=== PATIENT | male | born 1980 | race Two or more races ===

== ENCOUNTER 2025-05-11 21:09 | Inpatient (IN) ==
[2025-05-11 21:38] LABS: Basophils # (auto) 0.04 K/uL (0.00-0.20); Basophils % (auto) 0.7 %; Eosinophils # (auto) 0.02 K/uL (0.00-0.50); Eosinophils % (auto) 0.4 %; Hematocrit (blood only) 38.5 % (42.0-52.0); Hemoglobin 13.2 g/dl (14.0-18.0); Immature Granulocytes # (auto) 0.02 K/uL (0.01-0.20); Immature Granulocytes % (auto) 0.4 %; Lymphocytes # (auto) 1.08 K/uL (1.20-3.40); Lymphocytes % (auto) 19.2 %; Mean Corpuscular Hemoglobin 29.7 pg (25.0-34.0); Mean Corpuscular Hgb Conc 34.3 g/dL (32.0-36.0); Mean Corpuscular Volume 86.7 fL (80.0-100.0); Mean Platelet Volume 10.1 fL (9.4-12.4); Monocytes % (auto) 8.9 %; Neutrophils # (auto) 3.97 K/uL (1.40-6.50); Neutrophils % (auto) 70.4 %; Platelet Count 309 K/uL (130-400); RDW Coefficient of Variation 11.9 % (11.5-14.5); RDW Standard Deviation 37.7 fL (36.4-46.3); Red Blood Count 4.44 M/uL (4.70-6.10); White Blood Count 5.63 K/ul (4.8-10.8)
[2025-05-11 22:03] LABS: Prothrombin Time 10.8 Seconds (9.0-12.0)
[2025-05-11 22:07] LABS: Albumin Level 4.2 gm/dl (3.4-5.0); Bilirubin,Total 0.4 mg/dl (0.2-1.0); Calcium 9.2 mg/dl (8.6-10.3); Potassium 3.9 mmol/L (3.5-5.1)
[2025-05-11 22:13] LABS: Albumin Globulin Ratio 1.3 (0.9-2); BUN Creatinine Ratio 15.3 (10-20); Creatinine Clr Calc Pharmacy 131.4 ml/min; Globulin 3.3 gm/dl (2.5-4.0); Total Protein 7.5 gm/dl (6.0-8.3)
[2025-05-11 22:16] LABS: Acetaminophen 151 ug/ml (10-30); Salicylate < 3.0 mg/dl (3.0-30)
[2025-05-11 22:37] LABS: Amphetamines+Metham, Urine Neg (Neg); Barbiturates, Urine Neg (Neg); Benzodiazepine, Urine Neg (Neg); Cocaine, Urine Neg (Neg); Fentanyl, Urine Neg (Neg); MDMA (Ecstacy), Urine Neg (Neg); Marijuana, Urine Neg (Neg); Methadone, Urine Neg (Neg); Opiate, Urine Neg (Neg); Phencyclidine, Urine Neg (Neg)
--- NOTE | 2025-05-11 22:56 | History & Physical Report ---
Date of Service May 11, 2025 Assessment & Plan (1) Intentional overdose: Plan: Assessment and plan below following discussion of case with ED provider and reviewing patient history/pertinent normal/abnormal diagnostic test results. Intentional overdose Trileptal and Tylenol antisocial personality disorder hypertension, slightly elevated, patient not on maintenance medications hyperlipidemia, on statin Rx hx TIA as per patient account seizure disorder, stable on regimen New onset anemia, FOBT done at ER was negative Hyperglycemia rule out DM past tobacco abuse Admit to med/tele Hold Trileptal and Tylenol Continue Acetadote protocol for now for Tylenol toxicity, follow toxicology recommendations Suicide precautions Psych consult re: suicidality Monitor BP, initiate lisinopril if with persistent BP elevation. Anemia workup Check hemoglobin A1c DVT prophylaxis. SCDs Full code Text document was generated using [employer] voice recognition software. It may contain grammatical or spelling errors. Kindly contact undersigned for clarification of any documentation item in question. History of Present Illness Chief Complaint: Intentional overdose Primary Care Provider: CHANI Jacobs History obtained from patient and records. Medical history significant for hypertension, hyperlipidemia, TIA, seizure disorder, GERD, antisocial personality disorder, chronic pain, past tobacco abuse. Patient claims he took 30 pills of Trileptal around 10:30 in the morning fo llowed by 58 pills of Tylenol 500 mg around 8 PM. Admits that he had a breakdown today. Intentional drug overdose about 2 years ago as per patient. Denies chest pain, SOB. Patient refused charcoal administration at the [facility]. Achy right-sided abdominal pain at the ER. No overt bleeding as per patient account. IV Acetadote protocol initiated at the ER. Medical History as above Surgical History : None Family History : Heart disease, DM Personal/Social history : Past tobacco abuse, no EtOH intake, factory work prior to incarceration Allergies Allergy/AdvReac Type Severity Reaction Status Date / Time acetaminophen Allergy Unknown Unknown Unverified 05/11/25 21:36 NSAIDS (Non-Steroidal Allergy Unknown Unknown Unverified 05/11/25 21:36 Anti-Inflamma Home Medications Medication Instructions Recorded Confirmed Type aspirin 81 mg chewable tablet 81 mg PO DAILY 01/26/25 05/11/25 History atorvastatin 20 mg tablet 20 mg PO PM 01/26/25 05/11/25 History cholecalciferol (vitamin D3) 25 25 mcg PO DAILY 01/26/25 05/11/25 History mcg (1,000 unit) tablet (Vitamin D3) omeprazole 20 mg capsule,delayed 20 mg PO PM 01/26/25 05/11/25 History release acetaminophen 500 mg capsule 1,000 mg PO TID PRN Pain 05/11/25 05/11/25 History oxcarbazepine 300 mg tablet 900 mg PO BID 05/11/25 05/11/25 History Past Med/Surg History Problem List (Updated 05/12/25 @ 03:23 by Kingsley Loredo MD) Intentional overdose Intentional acetaminophen overdose (Acute) Suicide attempt by multiple drug overdose (Acute) Acetaminophen overdose (Acute) Seizure disorder (Acute) Social History Smoking Status: Former smoker Preferred Language: Faroese Feels Safe at Home: Yes Review of Systems Review of Systems: As per HPI, all other systems reviewed and negative Physical Exam Physical Exam: GENERAL: Slightly uncomfortable, no respiratory distress SKIN: Pallor, warm HEENT: Alopecia, pale palpebral conjunctivae, no ptosis, dry buccal mucosa NECK : Supple, no tenderness CHEST : CTA, no tenderness HEART : RRR, no obvious murmurs ABDOMEN: Some distention, right-sided abdominal tenderness RECTAL : Intact sphincter, brown stool (FOBT negative) EXTREMITIES : No LE swelling/tenderness, palpable pulses, no other conspicuous deformities noted NEUROLOGIC : Coherent, no facial asymmetry, no other gross focality Results & Data Results & Data Vital Signs (Past 12 Hours) Vital Signs Temp Pulse Resp BP Pulse Ox O2 Del Method 05/11/25 21:26 94 Room Air 05/11/25 21:18 Room Air 05/11/25 21:18 Room Air 05/11/25 21:18 36.8 C 85 20 149/106 H 97 Room Air 05/11/25 21:16 92 H Laboratory Results Laboratory Results WBC 5.63 K/ul (4.8-10.8) 05/11/25 21:20 RBC 4.44 M/uL (4.70-6.10) L 05/11/25 21:20 Hgb 13.2 g/dl (14.0-18.0) L 05/11/25 21:20 Hct 38.5 % (42.0-52.0) L 05/11/25 21:20 MCV 86.7 fL (80.0-100.0) 05/11/25 21:20 MCH 29.7 pg (25.0-34.0) 05/11/25 21: MCHC 34.3 g/dL (32.0-36.0) 05/11/25 21:20 RDW Std Deviation 37.7 fL (36.4-46.3) 05/11/25 21:20 RDW Coeff of Skinny 11.9 % (11.5-14.5) 05/11/25 21: Plt Count 309 K/uL (130-400) 05/11/25 21:20 MPV 10.1 fL (9.4-12.4) 05/11/25 21:20 Immature Gran % (Auto) 0.4 % 05/11/25 21: Neut % (Auto) 70.4 % 05/11/25 21:20 Lymph % (Auto) 19.2 % 05/11/25 21:20 [place] % (Auto) 8.9 % 05/11/25 21:20 Eos % (Auto) 0.4 % 05/11/25 21: Baso % (Auto) 0.7 % 05/11/25 21: Neut # (Auto) 3.97 K/uL (1.40-6.50) 05/11/25 21: Lymph # (Auto) 1.08 K/uL (1.20-3.40) L 05/11/25 21:20 [place] # (Auto) 0.50 K/uL (0.11-0.59) 05/11/25 21:20 Eos # (Auto) 0.02 K/uL (0.00-0.50) 05/11/25 21:20 Baso # (Auto) 0.04 K/uL (0.00-0.20) 05/11/25 21: Immature Gran # (Auto) 0.02 K/uL (0.01-0.20) 05/11/25: PT 10.8 Seconds (9.0-12.0) 05/11/25: INR 1.0 (0.9-1.1) 05/11/25: Sodium 136 mmol/L (136-145) 05/11/25 21: Potassium 3.9 mmol/L (3.5-5.1) 06/25/25 21:20 Chloride 102 mmol/L (98-107) 05/11/25 21:20 Carbon Dioxide 24 mmol/L (21-32) 05/11/25 21:20 Anion Gap 10 (3-11) 05/11/25 21:20 BUN 13 mg/dl (6-23) 05/11/25 21:20 Creatinine 0.85 mg/dl (0.6-1.4) 05/11/25 21:20 Est Cr Clr Drug Dosing 131.4 ml/min 05/11/25 21:20 eGFR 109.89 05/11/25 21:20 BUN/Creatinine Ratio 15.3 (10-20) 05/11/25 21:20 Glucose 115 mg/dl (70-99(Fasting)) H 05/11/25 21:20 Lactate 1.8 mmol/L (0.4-2.0) 05/11/25 21:45 Calcium 9.2 mg/dl (8.6-10.3) 05/11/25 21:20 Total Bilirubin 0.4 mg/dl (0.2-1.0) 05/11/25 21:20 AST 17 U/L (13-39) 05/11/25 21:20 ALT 15 U/L (7-52) 05/11/25 21:20 Alkaline Phosphatase 72 U/L (34-104) 05/11/25 21:20 Ammonia 28.0 umol/L (18-72) 05/11/25 21:45 Total Protein 7.5 gm/dl (6.0-8.3) 05/11/25 21:20 Albumin 4.2 gm/dl (3.4-5.0) 05/11/25 21:20 Globulin 3.3 gm/dl (2.5-4.0) 05/11/25 21:20 Albumin/Globulin Ratio 1.3 (0.9-2) 05/11/25 21:20 Salicylates < 3.0 mg/dl (3.0-30) L 05/11/25 21:20 Urine Opiates Screen Neg (Neg) 05/11/25 21:50 Ur Methadone, Qual Neg (Neg) 05/11/25 21:50 Urine Fentanyl Screen Neg (Neg) 05/11/25 21:50 Acetaminophen 151 ug/ml (10-30) H* 05/11/25 21:20 Urine Barbiturates Neg (Neg) 05/11/25 21:50 Ur Phencyclidine (PCP) Neg (Neg) 05/11/25 21:50 U Amphetamin/Meth Scrn Neg (Neg) 05/11/25 21:50 MDMA (Ecstasy) Screen Neg (Neg) 05/11/25 21:50 U Benzodiazepines Scrn Neg (Neg) 05/11/25 21:50 Ur Cocaine Metabolite Neg (Neg) 05/11/25 21:50 U Marijuana (THC) Screen Neg (Neg) 05/11/25 21:50 Ethyl Alcohol mg/dL < 10.0 mg/dl (<10.0) 05/11/25 21:20 CT abdomen pelvis: No significant abnormality detected No other new interval abnormality since prior study.
--- NOTE | 2025-05-11 23:54 | Emergency Department Note ---
Impression & Plan Acetaminophen overdose, Suicide attempt by multiple drug overdose, Intentional acetaminophen overdose ED Provider Note NAME: CYNTHIA [id number] TAMMIE AGE: 45 SEX: M : 1980 ARRIVES VIA: Ambulance INFORMANT: Patient, ED PROVIDER(S): Phyllis Marte MD CHIEF COMPLAINT: Overdose HPI: This is a 45-year-old male present for overdose. Patient states that at 10:30 AM he took 30 pills of Trileptal. He then took more pills at 8 PM today, about 1 hour ago. He took 58 pills of Tylenol 500 mg. He states his son attempted to kill himself. States he has "problems "right now. He notes some slight nausea and abdominal pain. He refused charcoal at the long-term. ROS: See above HPI for pertinent positives & negatives. A total of 10 systems reviewed and were otherwise negative. PAST MEDICAL HISTORY: See Below PAST SURGICAL HISTORY: See Below FAMILY HISTORY: See Below SOCIAL HISTORY: See Below HOME MEDICATIONS: See Below ALLERGIES: See Below VITALS: See Below PHYSICAL EXAMINATION: General: resting comfortably in no acute distress Head: Normocephalic and atraumatic Eyes: Normal inspection, extraocular muscles intact Ear, nose, throat: Normal external exam Neck: Normal range of motion Respiratory: speaking in full sentences, symmetric chest rise, no respiratory distress Cardiovascular: Regular rate/rhythm Extremities: moves all extremities Neuro: The patient awake and alert, appropriately conversive, symmetric faces, no focal deficits MEDICAL DECISION MAKING: This is a 45-year-old male presenting for overdose. Patient overall close clinically well but did have significant Tylenol ingestion. This appears to be about 29 g of Tylenol. Will give NAC at this time. Will get basic blood work, coingestions and a Trileptal level. Did discuss this with Poison Control Center. They recommend 4-hour Tylenol level, ammonia and coagulation. -ECG independently interpreted by me with normal sinus rhythm, rate of 93, normal axis, normal AL, normal QRS, normal QTc, no ST segment elevations consistent with STEMI criteria - Hemoglobin 13.2, no leukocytosis, electrolytes within normal limits. No creatinine elevation. Lactate 1.8. Negative slates and UDS. Positive acetaminophen level at 151. - Patient already ordered for NAC protocol. Differential diagnosis: Tylenol ingestion, antilithic ingestion, Independent History obtained from: [facility] [facility] Diagnostics interpreted by me: ECG: See above Cardiac Monitoring: An order was placed for continuous cardiac monitoring. The monitor shows a rate of 85 with sinus rhythm Critical Care Note: I have personally spent 34 minutes of critical care time in the direct management of this patient. This includes bedside care, interpretation of diagnostic studies, and testing, discussion with consultants, patient, and family members, and other required patient management activities. This 34 minutes is in excess of all separately billable procedures. Past Med/Surg History Problem List (Updated 05/12/25 @ 00:56 by Phyllis Marte MD) Intentional acetaminophen overdose (Acute) Suicide attempt by multiple drug overdose (Acute) Acetaminophen overdose (Acute) Seizure disorder (Acute) Social History Smoking Status: Former smoker Preferred Language: Chinese Feels Safe at Home: Yes Allergies Allergies Allergy/AdvReac Type Severity Reaction Status Date / Time acetaminophen Allergy Unknown Unknown Unverified 05/11/25 21:36 NSAIDS (Non-Steroidal Allergy Unknown Unknown Unverified 05/11/25 21:36 Anti-Inflamma Home Meds Home Medications Medication Instructions Recorded Confirmed aspirin 81 mg chewable tablet 81 mg PO DAILY 01/26/25 05/11/25 atorvastatin 20 mg tablet 20 mg PO PM 01/26/25 05/11/25 cholecalciferol (vitamin D3) 25 25 mcg PO DAILY 01/26/25 05/11/25 mcg (1,000 unit) tablet (Vitamin D3) omeprazole 20 mg capsule,delayed 20 mg PO PM 01/26/25 05/11/25 release acetaminophen 500 mg capsule 1,000 mg PO TID PRN Pain 05/11/25 05/11/25 oxcarbazepine 300 mg tablet 900 mg PO BID 05/11/25 05/11/25 Results & Data (ED) Vital Signs Vital Signs - 24 hr 05/11/25 21:16 05/11/25 21:18 05/11/25 21:18 Temperature 36.8 C Temperature Source Oral Pulse Rate 92 H 85 Pulse Rate from SpO2 Sensor Pulse Rhythm Regular Pulse Strength Normal Respiratory Rate 20 Respiratory Effort / Characteristics Non-Labored Spontaneous Respiratory Depth Normal Respiratory Pattern Regular Blood Pressure 149/106 H Blood Pressure Mean 120 Blood Pressure Position Lying Pulse Oximetry 97 Oxygen Delivery Method Room Air Room Air Sepsis Recent Fever Within 48 Hours No Sepsis New/Unexplained Change in Mental Status N/A Sepsis Action Taken by Nursing No Action Required 05/11/25 21:18 05/11/25 21:26 05/11/25 21:30 Temperature Temperature Source Pulse Rate 93 H Pulse Rate from SpO2 Sensor Pulse Rhythm Pulse Strength Respiratory Rate 21 Respiratory Effort / Characteristics Non-Labored Respiratory Depth Normal Respiratory Pattern Blood Pressure 137/100 Blood Pressure Mean 114 Blood Pressure Position Pulse Oximetry 94 96 Oxygen Delivery Method Room Air Room Air Sepsis Recent Fever Within 48 Hours Sepsis New/Unexplained Change in Mental Status Sepsis Action Taken by Nursing 05/11/25 22:00 05/11/25 22:30 Temperature Temperature Source Pulse Rate 88 83 Pulse Rate from SpO2 Sensor 89 Pulse Rhythm Pulse Strength Respiratory Rate 16 18 Respiratory Effort / Characteristics Respiratory Depth Respiratory Pattern Blood Pressure 139/101 H 131/101 H Blood Pressure Mean 113 117 Blood Pressure Position Pulse Oximetry 96 95 Oxygen Delivery Method Sepsis Recent Fever Within 48 Hours Sepsis New/Unexplained Change in Mental Status Sepsis Action Taken by Nursing Laboratory Data 05/12/25 00:26 05/11/25 21:20 Lab Results 05/11/25 05/11/25 05/11/25 Range/Units 21:20 21:26 21:45 WBC 5.63 (4.8-10.8) K/ul RBC 4.44 L (4.70-6.10) M/uL Hgb 13.2 L (14.0-18.0) g/dl Hct 38.5 L (42.0-52.0) % MCV 86.7 (80.0-100.0) fL MCH 29.7 (25.0-34.0) pg MCHC 34.3 (32.0-36.0) g/dL RDW Std Deviation 37.7 (36.4-46.3) fL RDW Coeff of Skinny 11.9 (11.5-14.5) % Plt Count 309 (130-400) K/uL MPV 10.1 (9.4-12.4) fL Immature Gran % (Auto) 0.4 % Neut % (Auto) 70.4 % Lymph % (Auto) 19.2 % [place] % (Auto) 8.9 % Eos % (Auto) 0.4 % Baso % (Auto) 0.7 % Neut # (Auto) 3.97 (1.40-6.50) K/uL Lymph # (Auto) 1.08 L (1.20-3.40) K/uL [place] # (Auto) 0.50 (0.11-0.59) K/uL Eos # (Auto) 0.02 (0.00-0.50) K/uL Baso # (Auto) 0.04 (0.00-0.20) K/uL Immature Gran # (Auto) 0.02 (0.01-0.20) K/uL PT 10.8 (9.0-12.0) Seconds INR 1.0 (0.9-1.1) Sodium 136 (136-145) mmol/L Potassium 3.9 (3.5-5.1) mmol/L Chloride 102 (98-107) mmol/L Carbon Dioxide 24 (21-32) mmol/L Anion Gap 10 (3-11) BUN 13 (6-23) mg/dl Creatinine 0.85 (0.6-1.4) mg/dl Est Cr Clr Drug Dosing 131.4 ml/min eGFR 109.89 BUN/Creatinine Ratio 15.3 (10-20) Glucose 115 H (70-99(Fasting)) mg/dl Lactate 1.8 (0.4-2.0) mmol/L Calcium 9.2 (8.6-10.3) mg/dl Total Bilirubin 0.4 (0.2-1.0) mg/dl AST 17 (13-39) U/L ALT 15 (7-52) U/L Alkaline Phosphatase 72 (34-104) U/L Ammonia 28.0 (18-72) umol/L Total Protein 7.5 (6.0-8.3) gm/dl Albumin 4.2 (3.4-5.0) gm/dl Globulin 3.3 (2.5-4.0) gm/dl Albumin/Globulin Ratio 1.3 (0.9-2) Salicylates < 3.0 L (3.0-30) mg/dl Urine Opiates Screen (Neg) Ur Methadone, Qual (Neg) Urine Fentanyl Screen (Neg) Acetaminophen 151 H* (10-30) ug/ml Urine Barbiturates (Neg) Ur Phencyclidine (PCP) (Neg) U Amphetamin/Meth Scrn (Neg) MDMA (Ecstasy) Screen (Neg) U Benzodiazepines Scrn (Neg) Ur Cocaine Metabolite (Neg) U Marijuana (THC) Screen (Neg) Ethyl Alcohol mg/dL < 10.0 (<10.0) mg/dl 05/11/25 Range/Units 21:50 WBC (4.8-10.8) K/ul RBC (4.70-6.10) M/uL Hgb (14.0-18.0) g/dl Hct (42.0-52.0) % MCV (80.0-100.0) fL MCH (25.0-34.0) pg MCHC (32.0-36.0) g/dL RDW Std Deviation (36.4-46.3) fL RDW Coeff of Skinny (11.5-14.5) % Plt Count (130-400) K/uL MPV (9.4-12.4) fL Immature Gran % (Auto) % Neut % (Auto) % Lymph % (Auto) % [place] % (Auto) % Eos % (Auto) % Baso % (Auto) % Neut # (Auto) (1.40-6.50) K/uL Lymph # (Auto) (1.20-3.40) K/uL [place] # (Auto) (0.11-0.59) K/uL Eos # (Auto) (0.00-0.50) K/uL Baso # (Auto) (0.00-0.20) K/uL Immature Gran # (Auto) (0.01-0.20) K/uL PT (9.0-12.0) Seconds INR (0.9-1.1) Sodium (136-145) mmol/L Potassium (3.5-5.1) mmol/L Chloride (98-107) mmol/L Carbon Dioxide (21-32) mmol/L Anion Gap (3-11) BUN (6-23) mg/dl Creatinine (0.6-1.4) mg/dl Est Cr Clr Drug Dosing ml/min eGFR BUN/Creatinine Ratio (10-20) Glucose (70-99(Fasting)) mg/dl Lactate (0.4-2.0) mmol/L Calcium (8.6-10.3) mg/dl Total Bilirubin (0.2-1.0) mg/dl AST (13-39) U/L ALT (7-52) U/L Alkaline Phosphatase (34-104) U/L Ammonia (18-72) umol/L Total Protein (6.0-8.3) gm/dl Albumin (3.4-5.0) gm/dl Globulin (2.5-4.0) gm/dl Albumin/Globulin Ratio (0.9-2) Salicylates (3.0-30) mg/dl Urine Opiates Screen Neg (Neg) Ur Methadone, Qual Neg (Neg) Urine Fentanyl Screen Neg (Neg) Acetaminophen (10-30) ug/ml Urine Barbiturates Neg (Neg) Ur Phencyclidine (PCP) Neg (Neg) U Amphetamin/Meth Scrn Neg (Neg) MDMA (Ecstasy) Screen Neg (Neg) U Benzodiazepines Scrn Neg (Neg) Ur Cocaine Metabolite Neg (Neg) U Marijuana (THC) Screen Neg (Neg) Ethyl Alcohol mg/dL (<10.0) mg/dl Administered Medications Acetylcysteine 5,000 mg/ (Dextrose) 525 mls @ 125 mls/hr IV ONCE ONE; Protocol Stop: 05/12/25 03:01 Last Admin: 05/12/25 00:11 Dose: 125 mls/hr Documented By: YENY Sodium Chloride (Nss) 1,000 mls @ 75 mls/hr IV .[id number] STA Stop: 05/12/25 12:17 Last Admin: 05/12/25 00:15 Dose: 75 mls/hr Documented By: YENY Discontinued Medications Acetylcysteine (Acetylcysteine Iv 21 Hr Regimen (>40kg)) 1 each IV NOW STA; Protocol Stop: 05/11/25 21:50 Last Admin: 05/11/25 22:36 Dose: Not Given Documented By: YENY Acetylcysteine 15,000 mg/ (Dextrose) 275 mls @ 200 mls/hr IV ONCE ONE; Protocol Stop: 05/11/25 23:12 Last Infusion: 05/12/25 00:14 Dose: Infused Documented By: Admin: 05/11/25 22:29 Dose: 200 mls/hr Documented By: YENY Ioversol (Optiray 320 100ml) 93 ml IV ONCE ONE Stop: 05/12/25 00:02 Last Admin: 05/12/25 00:01 Dose: 93 ml Documented By: MATT Miscellaneous (Stat Iv/Im) 1 each N/A NOW STA Stop: 05/11/25 21:50 Last Admin: 05/11/25 23:13 Dose: Not Given Documented By: YENY Oxycodone HCl (Oxycodone Hcl Ir 5 Mg Tab (Immediate Release)) 5 mg PO NOW STA Stop: 05/11/25 23:34 Last Admin: 05/12/25 00:11 Dose: 5 mg Documented By: YENY Discharge Plan Visit Data Chief Complaint: Overdose (Intentional) Stated Complaint: OVERDOSE, TOOK 58 TYLENOL (WITNESSED) ED Provider: Phyllis Marte Discharge Problem: Acetaminophen overdose, Suicide attempt by multiple drug overdose, Intentional acetaminophen overdose Patient Disposition: Admitted As Inpatient Condition: Fair Discharge Instructions Interventions: ED Discharge Assessment Last Done: 05/11/25 23:25 Discharge Problem: Acetaminophen overdose Qualifiers: Encounter type: initial encounter Injury intent: intentional self-harm Q ualified Code(s): T39.1X2A - Poisoning by 4-Aminophenol derivatives, intentional self-harm, initial encounter Suicide attempt by multiple drug overdose Qualifiers: Encounter type: initial encounter Qualified Code(s): T50.912A - Poisoning by multiple unspecified drugs, medicaments and biological substances, intentional self-harm, initial encounter Intentional acetaminophen overdose Qualifiers: Encounter type: initial encounter Qualified Code(s): T39.1X2A - Poisoning by 4- Aminophenol derivatives, intentional self-harm, initial encounter
[2025-05-12 00:43] LABS: Hematocrit (blood only) 38.1 % (42.0-52.0); Hemoglobin 12.9 g/dl (14.0-18.0); Reticulocyte % 1.21 % (0.50-2.00)
[2025-05-12 01:13] LABS: Acetaminophen 75 ug/ml (10-30); Valproic Acid < 10 mcg/ml (50-100)
[2025-05-12 01:17] LABS: Appearance Urine Clear (Clear); Bilirubin Urine Negative (Negative); Blood Urine Negative (Negative); Color Urine Yellow; Glucose Urine UA Negative (Negative); Ketones Urine Negative (Negative); Leukocyte Esterase Urine Negative (Negative); Nitrite Urine Negative (Negative); Protein Urine Negative (Negative); Specific Gravity Urine 1.021 (1.000-1.030); Urobilinogen Urine Negative (Negative); pH Urine 6.5 (4.5-7.5)
[2025-05-12 01:18] LABS: Ferritin 46.9 ng/ml (8-388)
[2025-05-12 01:23] LABS: Folate (Folic Acid),Ser orPlas 18.28 ng/ml (>5.38)
--- NOTE | 2025-05-12 01:25 | CT Scan Report ---
EXAM: CT abd pelvis IV con only CLINICAL HISTORY: r abd pain TECHNIQUE: Contiguous axial images were obtained from the level of the diaphragm to the pubic symphysis with intravenous contrast. Coronal and sagittal reconstructions were likewise performed and indicated to increase the sensitivity for detecting clinically relevant pathology. If IV contrast material had not been administered, the likelihood of detecting abnormalities relevant to the patient's condition would have been substantially decreased. CT scan was performed according to ALARA (as low as reasonable achievable). COMPARISON: 01/26/2025 07:34:35 DIETARY SERVICES MANAGER FINDINGS: The visualized lung bases are clear. The liver is normal in size and attenuation. Tiny hypodense focus is noted in segment V of liver - appears simple cyst.-stable. There is no intra or extrahepatic biliary ductal dilatation. Hepatic vasculature is patent. The gallbladder is present. The spleen, pancreas, and adrenal glands are unremarkable. The kidneys are normal in size and attenuation. There is no hydronephrosis or perinephric fat stranding. No renal calculi or renal masses are identified. The ureters are normal in caliber and no ureteral calculi are seen. The bladder is normal in contour. Pelvic viscera are unremarkable. No focal or diffuse bowel wall thickening or evidence of bowel obstruction is identified. The appendix is visualized in the right lower quadrant and appears within normal limits. Abdominal and pelvic vasculature is patent. No adenopathy or fluid collections are seen. No aggressive appearing osseous lesions are identified. IMPRESSION: No significant abnormality detected No other new interval abnormality since prior study. Electronically signed by Hakeem Mercado 05-12-2025 01:24 AM
--- NOTE | 2025-05-12 03:26 | Communication Note ---
Date of Service: May 12, 2025 Tylenol level noted to be decreasing. Poison control recommended stopping Acetadote protocol.
[2025-05-12 05:16] LABS: Basophils # (auto) 0.05 K/uL (0.00-0.20); Basophils % (auto) 0.6 %; Eosinophils # (auto) 0.01 K/uL (0.00-0.50); Eosinophils % (auto) 0.1 %; Hematocrit (blood only) 38.5 % (42.0-52.0); Immature Granulocytes # (auto) 0.02 K/uL (0.01-0.20); Immature Granulocytes % (auto) 0.2 %; Lymphocytes # (auto) 2.09 K/uL (1.20-3.40); Lymphocytes % (auto) 24.6 %; Mean Corpuscular Hemoglobin 29.5 pg (25.0-34.0); Mean Corpuscular Hgb Conc 33.8 g/dL (32.0-36.0); Mean Corpuscular Volume 87.3 fL (80.0-100.0); Mean Platelet Volume 9.8 fL (9.4-12.4); Monocytes % (auto) 9.4 %; Neutrophils # (auto) 5.51 K/uL (1.40-6.50); Neutrophils % (auto) 65.1 %; Platelet Count 310 K/uL (130-400); RDW Coefficient of Variation 11.9 % (11.5-14.5); RDW Standard Deviation 38.2 fL (36.4-46.3); Red Blood Count 4.41 M/uL (4.70-6.10); White Blood Count 8.48 K/ul (4.8-10.8)
[2025-05-12 05:32] LABS: Albumin Globulin Ratio 1.3 (0.9-2); Albumin Level 3.9 gm/dl (3.4-5.0); Bilirubin,Total 0.5 mg/dl (0.2-1.0); Calcium 8.9 mg/dl (8.6-10.3); Creatinine Clr Calc Pharmacy 134.5 ml/min; Globulin 2.9 gm/dl (2.5-4.0); Potassium 3.8 mmol/L (3.5-5.1); Total Protein 6.8 gm/dl (6.0-8.3)
[2025-05-12 07:19] LABS: Estimated Average Glucose 137 mg/dl; Hemoglobin A1C 6.4 % (4.5-5.6)
--- NOTE | 2025-05-12 12:17 | Psychiatric Consultation ---
Date of Consultation May 12, 2025 Impression / Recommendations Impression Diagnostically consistent with generalized anxiety disorder with panic attacks and history of antisocial personality disorder with adjustment disorder with mixed disturbance of emotions and conduct in the context of frustration/stress with his restrictive housing at [facility] and possible secondary gain component of the attempt in hoping this would further his request to move long-term facilities or create some movement with his current circumstances which he feels stuck in. No evidence for major depressive episode on interview nor mental status exam. Acute risk of self-harm is moderate given suicide attempt and ongoing ambivalence about being alive. He is not interested in starting any psychiatric medication at this time. He should remain on suicide precautions with guards present pending return to the long-term on suicide watch/long-term safety protocols until evaluated by their treating clinicians there. There are not a candidate for inpatient psychiatric care as they are an inmate and any forensic referrals would be at the discretion of the long-term. Overall, I spent a total of 60 minutes with this case including review of chart records, review of labwork, review of EKG QTc, direct evaluation of the patient at bedside, counseling the patient, discussion of the patient with the hospitalist provider, discussion with the psychiatric liason during clinical rounds and documentation in the electronic health record. (1) Intentional overdose: (2) Suicide attempt by multiple drug overdose: Encounter type: initial encounter Qualified Code(s): T50.912A - Poisoning by multiple unspecified drugs, medicaments and biological substances, intentional self-harm, initial encounter (3) Antisocial personality disorder: (4) Adjustment disorder with mixed disturbance of emotions and conduct: (5) Generalized anxiety disorder with panic attacks: Plan -Recommend 1-on-1 with suicide precautions -guards are also to be present at bedside -should return to [facility] on suicide precautions pending further evaluation there. -If he becomes interested in medication consider use of: abilify 5mg daily for off-label use for anxiety with panic attacks given multiple failed trials of SSRI/SNRI per his report Psych History Identifying Data Jigar Ceballos is a 45 yo man and inmate at [facility] with a history of hypertension, hyperlipidemia, TIA, seizure disorder, GERD, antisocial personality disorder, chronic pain admitted medically following suicide attempt via overdose of acetaminophen and Trileptal. Psychiatry consulted for recommendations. Chief Complaint "I'll probably be back here again in a few days". History of Present Illness Tano was seen at bedside with guards from his correctional facility. He reports stockpiling Trileptal, which he gets for seizures, over recent months for unclear reasons stating he was "hoarding them" and then had tylenol availa ble in blister packs due to history of pain. States his attempt was very impulsive and that he thought of suicide and abruptly took a bunch of medications. He suspects poor sleep in days prior to attempt and stressors contributed. He wasn't sure what he wanted to happen or what would happen with taking the medications. Did suspect that it would be better for a lot of other people "if I had a painful " references individuals who as part of his current incarceration charges and family. Ambivalent about being alive as he notes that [facility] to [facility] he'll have suicide restrictions such as safety smock and changes in where he is housed and that will probably lead to him attempting suicide again. Cites stressors of "court stuff, restrictive housing, family stuff". Endorses chronic anxiety with panic attacks with sense of doom and cause him to be paranoid that others are talking about him. Cites long history of psych med trials. Diagnosis of anxiety and depression. No history of austin nor psychosis. Hasn't ever found SSRIs or SNRIs to be beneficial. Didn't like mirtazapine. Liked olanzapine but caused foot swelling and weight gain. States long-term won't put him on Seroquel (it can be frequently misused in [facility] settings). He's not interested in starting any medication as he thinks the long-term won't continue it there. He denies any substance use. Allergies Allergy/AdvReac Type Severity Reaction Status Date / Time acetaminophen Allergy Unknown Unknown Unverified 05/11/25 21:36 NSAIDS (Non-Steroidal Allergy Unknown Unknown Unverified 05/11/25 21:36 Anti-Inflamma Home Medications Medication Instructions Recorded Confirmed Type aspirin 81 mg chewable tablet 81 mg PO DAILY 01/26/25 05/11/25 History atorvastatin 20 mg tablet 20 mg PO PM 01/26/25 05/11/25 History cholecalciferol (vitamin D3) 25 25 mcg PO DAILY 01/26/25 05/11/25 History mcg (1,000 unit) tablet (Vitamin D3) omeprazole 20 mg capsule,delayed 20 mg PO PM 01/26/25 05/11/25 History release acetaminophen 500 mg capsule 1,000 mg PO TID PRN Pain 05/11/25 05/11/25 History oxcarbazepine 300 mg tablet 900 mg PO BID 05/11/25 05/11/25 History Patient History Social History Smoking Status: Former smoker Hx Alcohol Use: No Hx Substance Use: No Preferred Language: Divehi Communication Ability: Effective Timber Girdler Required: No Beliefs That Will Affect Care: None Current Living Situation: Other Current Living Situation Comment: [facility] Feels Safe at Home: Yes Safety Concerns: Feels Safe At This Time Physical Exam Psychiatric: Orientation: alert and oriented x 3 Apperance: appropriately dressed and appropriately groomed Eye Contact: good eye contact Motor Behavior: no abnormal motor movements Speech: normal rate/rhythm/volume of speech Affect: + constricted affect Mood: + anxious mood; no depressed mood Thought Process: linear/logical thought process Thought Content: reality based without delusions Suicidal Thoughts: denies suicidal thoughts (but ambivalent about being alive) Homicidal Thoughts: denies homicidal thoughts Hallucinations: no auditory hallucinations and no visual hallucinations Cognition: recent memory grossly intact, remote memory grossly intact, attention grossly intact and language grossly intact Estimated Intelligence: consistent with education level Insight: + fair insight Judgment: + poor judgement Vital Signs (Past 24 Hours): Last Vital Signs Temp 36.8 C 05/11/25 21:18 Pulse 85 05/12/25 12:00 Resp 21 05/12/25 12:00 BP 138/93 05/12/25 12:00 Pulse Ox 95 05/12/25 07:30 O2 Del Method Room Air 05/12/25 12:00 Results & Data (PSY) Medications Administered Aspirin (Aspirin 81 Mg Ectab) 81 mg PO DAILY MIKEL Stop: 06/11/25 08:59 Last Admin: 05/12/25 07:25 Dose: 81 mg Documented By: ELE Sodium Chloride (Nss) 1,000 mls @ 60 mls/hr IV .[id number] STA Stop: 05/12/25 15:37 Last Admin: 05/12/25 00:15 Dose: 75 mls/hr Documented By: YENY Lisinopril (Lisinopril 2.5 Mg Tab) 2.5 mg PO QAM MIKEL Stop: 06/11/25 04:49 Last Admin: 05/12/25 07:25 Dose: 2.5 mg Documented By: ELE Oxycodone HCl (Oxycodone Hcl Ir 5 Mg Tab (Immediate Release)) 5 mg PO Q4H PRN PRN Reason: Pain Stop: 05/25/25 23:40 Last Admin: 05/12/25 11:18 Dose: 5 mg Documented By: ELE Coding Level of Care Code 50038 IN/OBS CONSULT LVL 4,60M Diagnoses Intentional overdose T50.902A Suicide attempt by multiple drug overdose T50.912A Encounter type: initial encounter Antisocial personality disorder F60.2 Adjustment disorder with mixed disturbance of emotions and conduct F43.25 Generalized anxiety disorder with panic attacks F41.1; F41.0
--- NOTE | 2025-05-12 13:45 | Hospitalist Progress Note ---
Date of Service May 12, 2025 Assessment & Plan (1) Antisocial personality disorder: (2) Intentional overdose: Plan Pt is a 45yoM with PMHx significant for hypertension, hyperlipidemia, TIA, seizure disorder, GERD, antisocial personality disorder, chronic pain, past tobacco abuse who presents from the group home with a suicide attempt by overdosing on 30 pills of Trileptal around 10:30 in the morning followed by 58 pills of Tylenol 500 mg around 8 PM. Intentional overdose antisocial personality disorder 30 pills of Trileptal around 10:30 in the morning followed by 58 pills of Tylenol 500 mg around 8 PM Hold Trileptal and Tylenol Continue Acetadote protocol for now for Tylenol toxicity, follow toxicology recommendations-- currently on hold Suicide precautions Psych consult re: suicidality suicide precautions one to one prn pain meds hypertension slightly elevated, patient not on maintenance medications Monitor BP, initiate lisinopril if with persistent BP elevation. Anemia FOBT negative Anemia panel pending Prediabetes Hgb a1c of 6.4 PCP followup Chronic Medical Problems: hyperlipidemia, on statin Rx hx TIA as per patient account seizure disorder, stable on regimen New onset anemia, FOBT done at ER was negative Hyperglycemia rule out DM past tobacco abuse DVT prophylaxis. SCDs Full code Admission and Anticipated Discharge Date Admission Date: May 11, 2025 Subjective Pt was seen while still down in the ED three guards at bedside Noting abd pain at that time Denied N/V, headache, changes to vision Notes lots of stressors Review of Systems Review of Systems: All systems reviewed & are unremarkable except as noted in Subjective Physical Exam Physical Exam: General: Alert, oriented. No acute distress Psych: Appropriate mood and affect Neuro: No gross deficits HEENT: NC/AT CV: RRR Resp: Breath sounds clear bilaterally, no increased effort of breathing Abdomen: Soft, tender in RUQ Extremities: No edema in lower extremities bilaterally. Results & Data Results & Data Vital Signs (Past 12 Hours) Vital Signs Pulse Pulse Resp BP Pulse Ox Pulse Ox O2 Del Method 05/12/25 12:00 138/93 05/12/25 12:00 85 21 Room Air 05/12/25 11:33 78 18 05/12/25 11:00 82 23 05/12/25 10:33 84 20 05/12/25 10:00 75 22 Room Air 05/12/25 10:00 150/100 H 05/12/25 09:30 66 13 05/12/25 08:00 72 14 146/103 H Room Air 05/12/25 07:30 79 19 95 Room Air 05/12/25 07:06 83 19 98 Room Air 05/12/25 07:01 148/111 H 05/12/25 06:50 74 05/12/25 06:30 71 21 143/96 H 95 05/12/25 06:00 67 15 160/100 H 95 05/12/25 05:43 96 05/12/25 05:30 77 18 158/93 H 95 05/12/25 05:00 78 22 159/112 H 95 05/12/25 04:00 82 15 168/109 H 05/12/25 03:00 85 16 153/111 H 95 05/12/25 02:30 77 19 157/110 H O2 Del Method 05/12/25 12:00 05/12/25 12:00 05/12/25 11:33 05/12/25 11:00 05/12/25 10:33 05/12/25 10:00 05/12/25 10:00 05/12/25 09:30 05/12/25 08:00 05/12/25 07:30 05/12/25 07:06 05/12/25 07:01 05/12/25 06:50 05/12/25 06:30 05/12/25 06:00 05/12/25 05:43 Room Air 05/12/25 05:30 05/12/25 05:00 05/12/25 04:00 05/12/25 03:00 05/12/25 02:30 Diagnostic Findings Abdomen/Pelvis CT 05/11/25 23:38 EXAM: CT abd pelvis IV con only CLINICAL HISTORY: r abd pain TECHNIQUE: Contiguous axial images were obtained from the level of the diaphragm to the pubic symphysis with intravenous contrast. Coronal and sagittal reconstructions were likewise performed and indicated to increase the sensitivity for detecting clinically relevant pathology. If IV contrast material had not been administered, the likelihood of detecting abnormalities relevant to the patient's condition would have been substantially decreased. CT scan was performed according to ALARA (as low as reasonable achievable). COMPARISON: 01/26/2025 07:34:35 PRODUCT DEVELOPMENT ASSISTANT FINDINGS: The visualized lung bases are clear. The liver is normal in size and attenuation. Tiny hypodense focus is noted in segment V of liver - appears simple cyst.-stable. There is no intra or extrahepatic biliary ductal dilatation. Hepatic vasculature is patent. The gallbladder is present. The spleen, pancreas, and adrenal glands are unremarkable. The kidneys are normal in size and attenuation. There is no hydronephrosis or perinephric fat stranding. No renal calculi or renal masses are identified. The ureters are normal in caliber and no ureteral calculi are seen. The bladder is normal in contour. Pelvic viscera are unremarkable. No focal or diffuse bowel wall thickening or evidence of bowel obstruction is identified. The appendix is visualized in the right lower quadrant and appears within normal limits. Abdominal and pelvic vasculature is patent. No adenopathy or fluid collections are seen. No aggressive appearing osseous lesions are identified. IMPRESSION: No significant abnormality detected No other new interval abnormality since prior study. Electronically signed by Hakeem Mercado 05-12-2025 01:24 AM
--- NOTE | 2025-05-12 15:42 | Electrocardiogram Report ---
Test Reason : Blood Pressure : */* mmHG Vent. Rate : 93 BPM Atrial Rate : 93 BPM P-R Int : 150 ms QRS Dur : 86 ms QT Int : 352 ms P-R-T Axes : 46 45 61 degrees QTcB Int : 437 ms Normal sinus rhythm Normal ECG When compared with ECG of 26-Jan-2025 08:01, No significant change was found Confirmed by Wojciech Cuello ([id number]) on 05/12/2025 3:42:48 PM Referred By: Reynaldo [facility] Confirmed By: Wojciech Cuello
[2025-05-12 23:31] VITALS: RESP 18
--- NOTE | 2025-05-13 01:22 | Communication Note ---
Date of Service: May 13, 2025 Patient inquiring regarding resumption of Trileptal Rx for seizure disorder as per RN. Last intake was yesterday morning. Okay to restart Trileptal as per conversation with poison control.
[2025-05-13 07:15] VITALS: BP 135/95; TEMP 97.9; O2SAT 96
[2025-05-13 09:12] LABS: Basophils # (auto) 0.07 K/uL (0.00-0.20); Basophils % (auto) 0.9 %; Eosinophils # (auto) 0.24 K/uL (0.00-0.50); Hematocrit (blood only) 41.4 % (42.0-52.0); Hemoglobin 13.5 g/dl (14.0-18.0); Immature Granulocytes # (auto) 0.01 K/uL (0.01-0.20); Immature Granulocytes % (auto) 0.1 %; Lymphocytes # (auto) 3.22 K/uL (1.20-3.40); Lymphocytes % (auto) 39.7 %; Mean Corpuscular Hemoglobin 29.2 pg (25.0-34.0); Mean Corpuscular Hgb Conc 32.6 g/dL (32.0-36.0); Mean Corpuscular Volume 89.6 fL (80.0-100.0); Mean Platelet Volume 9.8 fL (9.4-12.4); Monocytes # (auto) 0.68 K/uL (0.11-0.59); Monocytes % (auto) 8.4 %; Neutrophils # (auto) 3.89 K/uL (1.40-6.50); Neutrophils % (auto) 47.9 %; Platelet Count 291 K/uL (130-400); RDW Coefficient of Variation 12.3 % (11.5-14.5); Red Blood Count 4.62 M/uL (4.70-6.10); White Blood Count 8.11 K/ul (4.8-10.8)
[2025-05-13 09:29] LABS: Albumin Globulin Ratio 1.5 (0.9-2); Albumin Level 4.1 gm/dl (3.4-5.0); BUN Creatinine Ratio 14.4 (10-20); Bilirubin,Total 0.5 mg/dl (0.2-1.0); Calcium 9.1 mg/dl (8.6-10.3); Creatinine Clr Calc Pharmacy 115.1 ml/min; Globulin 2.7 gm/dl (2.5-4.0); Magnesium 1.8 mg/dl (1.7-2.4); Phosphorus 3.3 mg/dl (2.5-4.9); Potassium 3.8 mmol/L (3.5-5.1); Total Protein 6.8 gm/dl (6.0-8.3)
--- NOTE | 2025-05-13 09:40 | Discharge Summary ---
Discharge Summary Date of Service May 13, 2025 Principal Dx & Hospital Course #1 = Principal Diagnosis (1) Antisocial personality disorder: (2) Intentional overdose: Plan Pt is a 45yoM with PMHx significant for hypertension, hyperlipidemia, TIA, seizure disorder, GERD, antisocial personality disorder, chronic pain, past tobacco abuse who presents from the shelter with a suicide attempt by overdosing on 30 pills of Trileptal around 10:30 in the morning followed by 58 pills of Tylenol 500 mg around 8 PM. Intentional overdose antisocial personality disorder Seizure disorder 30 pills of Trileptal around 10:30 in the morning followed by 58 pills of Tylenol 500 mg around 8 PM Held Trileptal and Tylenol Acetadote protocol for Tylenol toxicity, follow Poison Control/toxicology recommendations, tylenol level 151 on arrival, down to 75 on recheck, Poison control recommended stopping the protocol. Apron Cleaner discussed with Poison Control overnight on 05/12- advised pt can resume home trileptal. Resumed before discharge. Suicide precautions Psych consult re: suicidality one to one prn pain meds Per Psychiatry recommendations: "...Diagnostically consistent with generalized anxiety disorder with panic attacks and history of antisocial personality disorder with adjustment disorder with mixed disturbance of emotions and conduct in the context of frustration/stress with his restrictive housing at [facility] and possible secondary gain component of the attempt in hoping this would further his request to move shelter facilities or create some movement with his current circumstances which abilio issa feels stuck in. No evidence for major depressive episode on interview nor mental status exam. Acute risk of self-harm is moderate given suicide attempt and ongoing ambivalence about being alive. He is not interested in starting any psychiatric medication at this time. He should remain on suicide precautions with guards present pending return to the shelter on suicide watch/shelter safety protocols until evaluated by their treating clinicians there. There are not a candidate for inpatient psychiatric care as they are an inmate and any forensic referrals would be at the discretion of the shelter... Plan -Recommend 1-on-1 with suicide precautions -guards are also to be present at bedside -should return to [facility] on suicide precautions pending further evaluation there. -If he becomes interested in medication consider use of: abilify 5mg daily for off-label use for anxiety with panic attacks given multiple failed trials of SSRI/SNRI per his report..." Report called and given to Dr. Banks at [facility]. The above was communicated upon discharge. Will need close Psychiatry and Neurology followup after discharge. hypertension slightly elevated, patient not on maintenance medications Monitor BP Started and discharged on lisinopril Titrate dose as needed Anemia FOBT negative Anemia panel normal Prediabetes Hgb a1c of 6.4 PCP followup Simple cyst-liver Noted on CT PCP followup Chronic Medical Problems: hyperlipidemia, on statin Rx hx TIA as per patient account seizure disorder, as above, restarted on trileptal, needs close pcp and neuro followup New onset anemia, FOBT done at ER was negative Hyperglycemia rule out DM past tobacco abuse Notes For Next Care Provider As above Medication Changes From Visit Stop tylenol tarted on lisinopril, titrate dose up prn Admission HPI Per Admitting Provider History obtained from patient and records. Medical history significant for hypertension, hyperlipidemia, TIA, seizure disorder, GERD, antisocial personality disorder, chronic pain, past tobacco abuse. Patient claims he took 30 pills of Trileptal around 10:30 in the morning followed by 58 pills of Tylenol 500 mg around 8 PM. Admits that he had a breakdown today. Intentional drug overdose about 2 years ago as per patient. Denies chest pain, SOB. Patient refused charcoal administration at the [facility]. Achy right-sided abdominal pain at the ER. No overt bleeding as per patient account. IV Acetadote protocol initiated at the ER. Medical History as above Surgical History : None Family History : Heart disease, DM Personal/Social history : Past tobacco abuse, no EtOH intake, factory work prior to incarceration Admission Exam Per Admitting Provider GENERAL: Slightly uncomfortable, no respiratory distress SKIN: Pallor, warm HEENT: Alopecia, pale palpebral conjunctivae, no ptosis, dry buccal mucosa NECK : Supple, no tenderness CHEST : CTA, no tenderness HEART : RRR, no obvious murmurs ABDOMEN: Some distention, right-sided abdominal tenderness RECTAL : Intact sphincter, brown stool (FOBT negative) EXTREMITIES : No LE swelling/tenderness, palpable pulses, no other conspicuous deformities noted NEUROLOGIC : Coherent, no facial asymmetry, no other gross focality Discharge Exam General: Alert, oriented. No acute distress Psych: Appropriate mood and affect Neuro: No gross deficits HEENT: NC/AT CV: RRR Resp: Breath sounds clear bilaterally, no increased effort of breathing Abdomen: Soft, tender in RUQ Extremities: No edema in lower extremities bilaterally. Updated Medication List Medication Instructions Recorded Confirmed Type aspirin 81 mg chewable tablet 81 mg PO DAILY 01/26/25 05/11/25 History atorvastatin 20 mg tablet 20 mg PO PM 01/26/25 05/11/25 History cholecalciferol (vitamin D3) 25 25 mcg PO DAILY 01/26/25 05/11/25 History mcg (1,000 unit) tablet (Vitamin D3) omeprazole 20 mg capsule,delayed 20 mg PO PM 01/26/25 05/11/25 History release oxcarbazepine 300 mg tablet 900 mg PO BID 05/11/25 05/11/25 History lisinopril 2.5 mg tablet 2.5 mg PO QAM #30 tabs 05/13/25 Rx Hospital Stay Data Consultations 05/11/25 23:25 Consult Psychiatry Routine 05/11/25 23:35 ED Decision to Admit Stat Diagnostic Imagining Performed 05/11/25 23:38 CT Abd and Pelvis [CT abd pelvis IV con only] Stat Abdomen/Pelvis CT 05/11/25 23:38 EXAM: CT abd pelvis IV con only CLINICAL HISTORY: r abd pain TECHNIQUE: Contiguous axial images were obtained from the level of the diaphragm to the pubic symphysis with intravenous contrast. Coronal and sagittal reconstructions were likewise performed and indicated to increase the sensitivity for detecting clinically relevant pathology. If IV contrast material had not been administered, the likelihood of detecting abnormalities relevant to the patient's condition would have been substantially decreased. CT scan was performed according to ALARA (as low as reasonable achievable). COMPARISON: 01/26/2025 07:34:35 DIRECTOR TREASURER FINDINGS: The visualized lung bases are clear. The liver is normal in size and attenuation. Tiny hypodense focus is noted in segment V of liver - appears simple cyst.-stable. There is no intra or extrahepatic biliary ductal dilatation. Hepatic vasculature is patent. The gallbladder is present. The spleen, pancreas, and adrenal glands are unremarkable. The kidneys are normal in size and attenuation. There is no hydronephrosis or perinephric fat stranding. No renal calculi or renal masses are identified. The ureters are normal in caliber and no ureteral calculi are seen. The bladder is normal in contour. Pelvic viscera are unremarkable. No focal or diffuse bowel wall thickening or evidence of bowel obstruction is identified. The appendix is visualized in the right lower quadrant and appears within normal limits. Abdominal and pelvic vasculature is patent. No adenopathy or fluid collections are seen. No aggressive appearing osseous lesions are identified. IMPRESSION: No significant abnormality detected No other new interval abnormality since prior study. Electronically signed by Hakeem Mercado 05-12-2025 01:24 AM Discharge Instructions Given to Patient (Per Discharging Provider) Mr. Ceballos, Bar were seen and treated for a drug overdose. Please take your medications as prescribed upon return and follow up closely with Psychiatry and your ptimary care provider there. Total Time Total Time Spent Total Time Spent (In Minutes): 60
[2025-05-13 09:55] VITALS: PULSE 79
== END 2025-05-13 10:30 | DRG 918 ==
LOC: ED 21:09 → EDINP 22:57 → 2N 23:25